=== PATIENT | female | born 1980 | race Caucasian/White ===

== ENCOUNTER 2018-04-06 21:37 | Emergency (ER) | payer MEDICAID ==
[~2018-04-06] VITALS: Ht 160 cm; Wt 68.0 kg
[~2018-04-06 21:37] MED LIST: AMOXICILLIN500 M1 PO; AZITHROMYCIN 2250 MG PO; FLAGYL500 MG PO; HYDROCODONE-AP1 EAC6 PO; IBUPROFEN 800800 M1 PO; METFORMIN 500500 MG PO; MUCINEX TA600 MG/TA2 PO; NORCO 5-325 TA1 EACH PO; ONDANSETRON HCL4 M2 PO; PENICILLIN V P500 MG PO; PHENERGAN 25 MG25 M1; PHENERGAN 25 MG25 MG PO; RELPAX20 MG; SPRINTEC1 EACH; TRAMADOL 50 MG50 MG PO; TRINATE TABLET1 TAB; ULTRAM 50MG TAB50 MG PO; VENTOLIN HFA 1818 GM; VISTARIL 25 MG25 M1; XANAX 0.5 MG0.5 MG PO; ZOFRAN ODT4 MG PO
[2018-04-06 22:30] LABS: URINE BILIRUBIN NEGATIVE (Negative); URINE BLOOD TRACE (Negative); URINE CLARITY CLEAR; URINE COLOR YELLOW; URINE GLUCOSE-RANDOM NEGATIVE (Negative); URINE KETONES NEGATIVE (Negative); URINE LEUKOCYTES-REFLEX NEGATIVE (Negative); URINE NITRITE-REFLEX NEGATIVE (Negative); URINE PROTEIN NEGATIVE (Negative); URINE SPECIFIC GRAVITY >= 1.030 (1.005-1.030); URINE UROBILINOGEN 0.2 E.U./dl (0.2-1.0)
[2018-04-06 22:57] VITALS: BP 123/84
== END 2018-04-06 22:57 | disposition home or self-care (01) ==
LOC: M.ERS 21:37
PROVIDERS: Family Medicine
DX: O26.899 Other specified pregnancy related conditions, unspecified trimester (principal); R10.9 Unspecified abdominal pain; R11.0 Nausea; O16.9 Unspecified maternal hypertension, unspecified trimester; Z3A.00 Weeks of gestation of pregnancy not specified

== ENCOUNTER 2019-05-28 15:30 | Emergency (ER) | payer OTHER, MEDICAID ==
[~2019-05-28] VITALS: Ht 160 cm; Wt 85.3 kg
[2019-05-28] MEDS ORDERED: ENBRACE HR SOF1 EACH PO (15:43)
[2019-05-28] MEDS ORDERED: TRIAMCINOLONE A15 G3 TOP (16:04)
[2019-05-28 16:19] VITALS: BP 116/75
== END 2019-05-28 16:20 | disposition home or self-care (01) ==
LOC: M.ERS 15:30
DX: L30.9 Dermatitis, unspecified (principal); I10 Essential (primary) hypertension; N80.9 Endometriosis, unspecified; Z88.1 Allergy status to other antibiotic agents; Z91.018 Allergy to other foods

== ENCOUNTER 2021-03-01 14:41 | Emergency (ER) | payer OTHER, MEDICAID ==
[~2021-03-01] VITALS: Ht 162.6 cm; Wt 68.0 kg
[~2021-03-01 14:41] MED LIST changes: +ENBRACE HR SOF1 EACH PO; +TRIAMCINOLONE A15 G3 TOP
[2021-03-01] MEDS ORDERED: HYDROCODON-ACE1 EAC7 PO (16:06)
[2021-03-01 16:14] VITALS: BP 136/96
== END 2021-03-01 16:15 | disposition home or self-care (01) ==
LOC: M.ERS 14:41
DX: S50.02XA Contusion of left elbow, initial encounter (principal); I10 Essential (primary) hypertension; F17.210 Nicotine dependence, cigarettes, uncomplicated; Z91.02 Food additives allergy status; Z88.1 Allergy status to other antibiotic agents; W19.XXXA Unspecified fall, initial encounter; Y93.89 Activity, other specified; Y92.89 Other specified places as the place of occurrence of the external cause; Y99.8 Other external cause status